=== PATIENT | female | born 1950 | race Caucasian/White ===

== ENCOUNTER → 2017-06-20 | Outpatient (CLI) | payer MEDICARE, OTHER ==
[~2017-06-20] MED LIST: CITA20 PO; Flonase 0.05% N16 GM; LORA10; LOSA50 PO
[2017-06-20 18:16] LABS: Bacteria Many /hpf; Red Blood Cells, Urine 0-2 /hpf (0-2); Source, Urine Clean Catch; Squamous Epithelial Cells Few /hpf (Few)
== END | disposition home or self-care (01) ==
LOC: LAB SHORT 18:14
PROVIDERS: General Practice
DX: R82.90 Unspecified abnormal findings in urine (principal)
CPT/HCPCS: 81015; 87077; 87086; 87186

== ENCOUNTER → 2019-02-07 | Outpatient (CLI) | payer MEDICARE, OTHER ==
[2019-02-07 14:57] LABS: BASOPHILS ABSOLUTE AUTO 0.04 K/mm3 (0.00-0.23); BASOPHILS PERCENT AUTO 0 % (0-2); EOSINOPHILS ABSOLUTE AUTO 0.06 K/mm3 (0.00-0.68); EOSINOPHILS PERCENT AUTO 0 % (0-6); Hematocrit 39.5 % (33.0-51.0); Hemoglobin 13.5 g/dL (11.5-16.0); IMMATURE GRAN ABSOLUTE AUTO 0.06 K/mm3 (0.00-0.10); IMMATURE GRAN PERCENT AUTO 0 % (0-1); LYMPHOCYTES ABSOLUTE AUTO 1.86 K/mm3 (0.84-5.20); LYMPHOCYTES PERCENT AUTO 13 % (21-46); MONOCYTES ABSOLUTE AUTO 0.39 K/mm3 (0.16-1.47); MONOCYTES PERCENT AUTO 3 % (4-13); Mean Corpuscular HGB 35.4 pg (26.0-34.0); Mean Corpuscular HGB Conc 34.2 g/dL (31.5-36.5); Mean Corpuscular Volume 104 fL (80-100); Mean Platelet Volume 9.4 fL (9.1-12.4); NEUTROPHILS ABSOLUTE AUTO 12.14 K/mm3 (1.96-9.15); NEUTROPHILS PERCENT AUTO 83 % (41-73); Platelet Count 226 K/mm3 (150-400); RDW Coefficient Variation 11.7 % (11.7-14.2); RDW Standard Deviation 44.5 fL (35.1-46.3); Red Blood Cell Count 3.81 M/mm3 (3.80-5.20); White Blood Cell Count 14.55 K/mm3 (4.00-11.30)
[2019-02-07 15:09] LABS: Alanine Aminotransfer (ALT/SGP 8 U/L (12-78); Albumin, Blood 2.9 g/dL (3.4-5.0); Albumin/Globulin Ratio 0.7 (0.8-1.8); Alk Phos 102 U/L (40-126); Anion Gap 7 mmol/L (6-16); Aspartate Aminotrans (AST/SGOT 18 U/L (12-37); Bilirubin, Total 0.8 mg/dL (0.1-1.0); Blood Urea Nitrogen 12 mg/dL (8-24); Bun/Creatinine Ratio 13.2 (12.0-20.0); CO2, Blood 27 mmol/L (21-32); Calcium, Blood 9.2 mg/dL (8.5-10.1); Chloride, Blood 105 mmol/L (98-108); Creatinine, Blood 0.91 mg/dL (0.40-1.00); Globulin, Blood 4.4 g/dL (2.2-4.0); Glomerular Filtration Rate >60 (60-); Glucose, Blood 89 mg/dL (70-99); Potassium, Blood 3.8 mmol/L (3.5-5.5); Sodium, Blood 139 mmol/L (136-145); Total Protein, Blood 7.3 g/dL (6.4-8.2); Troponin I <0.017 ng/mL (0.000-0.040)
== END | disposition home or self-care (01) ==
LOC: LAB EV 14:50 → LAB SHORT 14:50
PROVIDERS: Physician Assistant
DX: R07.9 Chest pain, unspecified (principal)
CPT/HCPCS: 80053; 84484; 85025; 85379

== ENCOUNTER 2021-08-01 07:00 | Day surgery (SDC) | payer MEDICARE, OTHER ==
[~2021-08-01] VITALS: Ht 170.2 cm; Wt 65.7 kg
[~2021-08-01 07:00] MED LIST changes: +LISI20 PO
--- NOTE | 2021-08-01 11:12 | NUR ---
POD 0 LEFT TOTAL KNEE PATIENT CAME BACK AROUND 1100 TODAY 08/01/21. PATIENT IS ALERT AND ORIENTED X4. VS ARE WNL AND IS ON RA. PATIENT DENIES PAIN AT THIS TIME DUE TO SPINAL. PATIENT HAS NO FEELING FROM WAIST DOWN AT THIS TIME. PARMJIT WRAP ON HER LEFT KNEE IS C/D/I. POLAR PACK IS IN PLACE. SHE IS TOLERATING SMALL AMOUNTS OF PO INTAKE AT THIS TIME. CALL LIGHT WITHIN REACH.
--- NOTE | 2021-08-01 17:27 | NUR ---
SHIFT SUMMARY: NO SIGNIFICANT CHANGES SINCE ARRIVAL FROM PACU. PATIENT IS VOIDING, TOLERATING PO INTAKE, AND HAS ALREADY WORKED WITH PT TODAY. SHE IS A SBA WITH FWW AND GAIT BELT. PAIN IS MANAGED WITH TYLENOL AT THIS TIME AND IV TORADOL. THE PLAN IS TO BE DISCHARGED HOME TOMORROW IF APPROPRIATE AND IF PAIN IS MANAGED.
--- NOTE | 2021-08-02 03:22 | NUR ---
PT A&OX4, ABLE TO ABMULATE TO BR WITH ASSISTANCE USING FWW AND IS ABLE TO MAKE NEEDS KNOWN. POST OP DAY 1 FOR L TKA, AQUACEL DRESSING IN PLACE COVERD WITH PARMJIT BANDAGE, POLAR PACK IN PLACE. PT COMPLAINS OF SOME NUMBNESS IF THE LEFT FOOT, FELT BETTER DURING LAST ASSESSMENT. PAIN CONTROLLED WITH TESSA 5MG. PT TOLERATING PO FLUIDS AND REGULAR DIET WITH NO NAUSEA. WILL CONTINUE TO MONITOR THIS PT
[2021-08-02 03:47] LABS: BASOPHILS ABSOLUTE AUTO 0.02 K/mm3 (0.00-0.23); BASOPHILS PERCENT AUTO 0 % (0-2); EOSINOPHILS ABSOLUTE AUTO 0.01 K/mm3 (0.00-0.68); EOSINOPHILS PERCENT AUTO 0 % (0-6); Hematocrit 32.2 % (33.0-51.0); Hemoglobin 11.4 g/dL (11.5-16.0); IMMATURE GRAN ABSOLUTE AUTO 0.01 K/mm3 (0.00-0.10); IMMATURE GRAN PERCENT AUTO 0 % (0-1); LYMPHOCYTES ABSOLUTE AUTO 1.11 K/mm3 (0.84-5.20); LYMPHOCYTES PERCENT AUTO 17 % (21-46); MONOCYTES ABSOLUTE AUTO 0.75 K/mm3 (0.16-1.47); MONOCYTES PERCENT AUTO 11 % (4-13); Mean Corpuscular HGB 39.6 pg (26.0-34.0); Mean Corpuscular HGB Conc 35.4 g/dL (31.5-36.5); Mean Corpuscular Volume 112 fL (80-100); Mean Platelet Volume 8.7 fL (9.1-12.4); NEUTROPHILS PERCENT AUTO 71 % (41-73); Platelet Count 179 K/mm3 (150-400); RDW Coefficient Variation 12.1 % (11.7-14.2); Red Blood Cell Count 2.88 M/mm3 (3.80-5.20)
[2021-08-02 04:04] LABS: Anion Gap 3 mmol/L (6-16); Blood Urea Nitrogen 13 mg/dL (8-24); CO2, Blood 26 mmol/L (21-32); Calcium, Blood 7.7 mg/dL (8.5-10.1); Chloride, Blood 103 mmol/L (98-108); Creatinine, Blood 0.87 mg/dL (0.40-1.00); Glomerular Filtration Rate >60 (60-); Glucose, Blood 120 mg/dL (70-99); Sodium, Blood 132 mmol/L (136-145)
[2021-08-02] MEDS ORDERED: Percocet 5-3251 EACH PO (09:45)
[2021-08-02] MEDS ORDERED: Aspir 8181 MG PO (09:45)
--- NOTE | 2021-08-02 11:02 | NUR ---
DISCHARGE NOTE: PATIENT WAS EDUCATED ON DISCHARGE INSTRUCTIONS. SHE VERBALIZED UNDERSTANDING OF INSTRUCTIONS. HARD PERSCRIPTIONS ARE IN INSTRUCTIONS FOLDER. PATIENT IS ALERT AND ORIENTED X4. VS ARE WNL AND IS ON RA. PAIN IS MANAGED WITH PO PAIN MEDS. LEFT KNEE HAS PARMJIT WRAP AND IS C/D/I. AMBULATES WITH FWW AND GAIT BELT. PATIENT IS DRESSED AND HAS ITEMS IN THE ROOM GATHERED. PATIENT IS AWAITING RISE TO TAKE HER HOME AROUND 1300.
--- NOTE | 2021-08-02 13:08 | NUR ---
PATIENT WAS JUST WHEELCHAIRED DOWN TO A FAMILY [employer] CAR TO TAKE HER HOME. ITEMS WERE GATHERED AND TAKEN WITH HER.
== END 2021-08-02 13:10 | disposition home or self-care (01) ==
LOC: ORSCMMR 07:00 → ORD 08:15 → SURS 10:57 → ORSCMMR 08-02 13:10
PROVIDERS: Orthopaedic Surgery
PROC: 8E0Y0CZ Robotic Assisted Procedure of Lower Extremity, Open Approach (ICD-10-PCS; principal; 2021-08-01 08:15)
PROC: 0SRD0JA Replacement of Left Knee Joint with Synthetic Substitute, Uncemented, Open Approach (ICD-10-PCS; principal; 2021-08-01 08:15)
DX: M17.12 Unilateral primary osteoarthritis, left knee (principal); I10 Essential (primary) hypertension; Z79.899 Other long term (current) drug therapy
CPT/HCPCS: 27447; S2900; 36415; 73560-LT; 80048; 85025; 97110; 97116; 97161; 97530; A9270; C1776; J0171; J0690; J0735; J1100; J1885; J2250; J2405; J2704; J2795; J3370; J7050; J7120

== ENCOUNTER → 2023-04-18 | Outpatient (CLI) | payer MEDICARE ==
[~2023-04-18] MED LIST changes: +Aspir 8181 MG PO; +Percocet 5-3251 EACH PO
== END ==
LOC: LAB SHORT 07:48 → PLD 07:48
DX: D48.5 Neoplasm of uncertain behavior of skin (principal)
CPT/HCPCS: 88341; 88342

== ENCOUNTER 2024-05-25 11:38 | Day surgery (SDC) | payer MEDICARE ==
[~2024-05-25] VITALS: Ht 167.6 cm; Wt 68.0 kg
[~2024-05-25 11:38] MED LIST changes: +Lactated Ringer's 1,000 ML IV ONE; +Lidocaine HCl 2% 10 ML SDA ONE; +Rocuronium Bromide 10 MG/ML 5ML Injection IV ONE; +ZESTRIL40 M1 PO
[2024-05-25] MEDS ORDERED: Midazolam HCl 1MG / ML 2ML Vial ONE (11:39)
[2024-05-25] MEDS ORDERED: CeFAZolin Sodium 2,000 MG VIAL ONE (11:52)
[2024-05-25] MEDS ORDERED: METO25 PO (12:05)
[2024-05-25] MEDS ORDERED: Lactated Ringer's 1,000 ML IV ONE (12:19)
--- NOTE | 2024-05-25 12:35 | NUR ---
05/25/[address] AT BEDSIDE FOR NERVE BLOCK. GAVE PT VERSED, PLACED ON MONITOR. . T/O AT 1226, START PROCEDURE TIME AT 1228, END TIME 1231. PT BAIRON WELL.
[2024-05-25] MEDS ORDERED: FentaNYL Citrate 50 MCG/ML 2 ML Injection ONE (13:06)
[2024-05-25] MEDS ORDERED: Labetalol HCL 5 MG/ML 4ML Injection (Single Dose) ONE (13:06)
--- NOTE | 2024-05-25 13:30 | NUR ---
05/25/24 1330 Amaya Matos PT TO PACU, DROWSY BUT AROUSABLE. NO ACUTE DISTRESS NOTED. REPORT RECEIVED. PT DENIES PAIN OR NAUSEA AT THIS TIME. PATIENT ABLE TO ANSWER QUESTIONS AND FOLLOW COMMANDS.
[2024-05-25 14:15] VITALS: BP 173/90
--- NOTE | 2024-05-25 14:36 | NUR ---
05/25/24 1436 Amaya Matos REPORT GIVEN TO ANDREW MA AT 1330. RECEIVED REPORT FROM ANDREW MA AT 1345. PATIENT MOVED TO STEP DOWN AND SITTING IN CHAIR, NO ACUTE DISTRESS NOTED. TOLERATING ORAL FLUIDS WELL, DENIES NAUSEA AT THIS TIME.
== END 2024-05-25 14:30 | disposition home or self-care (01) ==
LOC: ORSCSDS 11:38
PROVIDERS: Orthopaedic Surgery
PROC: 0PSJ04Z Reposition Left Radius with Internal Fixation Device, Open Approach (ICD-10-PCS; principal; 2024-05-25 13:30)
DX: S52.572A Other intraarticular fracture of lower end of left radius, initial encounter for closed fracture (principal); W18.30XA Fall on same level, unspecified, initial encounter; I10 Essential (primary) hypertension; F32.A Depression, unspecified; Z79.899 Other long term (current) drug therapy
CPT/HCPCS: C1713; J0690; J2003; J2250; J3010; J7120